=== PATIENT | female | born 1985 | race Two or more races ===

== ENCOUNTER 2024-03-11 23:53 | Emergency (ER) | payer BC, SELFPAY ==
[2024-03-11 23:53] VITALS: BMI 36.6
--- NOTE | 2024-03-12 00:09 | EDNOTE_ITS ---
ED Dental RME/HPI General Chief complaint: Dental/Oral/Throat Stated complaint: RIGHT UPPER TOOTH PAIN Time Seen by Provider: 03/11/24 23:56 Arrival date/time: 03/11/24 23:53 39 female present to emergency room with c/o of dental pain for 2 day. born full term, immunizations up to date and normal growth and development to date . pt has an appointment with dentist on 03/14/24 SEVERITY: Symptoms are described as being severe with limitations on activities of daily living CONTEXT: The patient is unable to identify any inciting events. DURATION/TIMING: The symptoms started approximately 2 days ASSOCIATED SYMPTOMS: The patient is unable to identify any other associated symptoms. MODIFYING FACTORS: The patient is unable to identify any alleviating or aggravating symptoms. PERTINENT ROS: no fevers, no cough, no chest pain/shortness of breath no nausea,vomiting, diarrhea, no dizziness/headache no rash no loc/syncope REVIEW OF SYSTEMS: See History of Present Illness - with the exception of those mentioned in the history of present illness, all other systems reviewed and reported as negative GENERAL: In general the patient is awake, interactive, in an emergency department gurney. HEAD/EYES/EARS/NOSE/THROAT: Teeth/gingiva in poor condition. + right upper partial fracture tooth noted. no airway obstruction no ludwigs normo-cephalic, atraumatic, mucus membranes are moist, anicteric, palpebral conjunctiva is pink, trachea is midline. EXTREMITY: no tenderness to palpation over the long bones or large joints of the bilateral upper and lower extremities, no joint swelling, no joint erythema, no signs of trauma, no unilateral leg swelling and no peripheral edema. SKIN: warm, dry, well-perfused, no jaundice, no rash, no telangiectasias or petechia. PSYCH: calm, cooperative, no evidence of psychosis or agitation Related Data Allergies Allergy/AdvReac Type Severity Reaction Status Date / Time codeine Allergy Intermediate Nausea/Vomi Verified 07/23/22 11:22 tiing Course Course Course Narrative: Presentation consistent with dental pain of tooth # upper right tooth No evidence of Tobi's Angina, large abscess pocket, requirement for emergent extraction, or other complications. Provided prescription for augmentin. Patient informed to follow up with local dentist. Return to ER if pain uncontrolled, abscess that drains purulent fluid, high fevers, trouble swallowing, or other concerns.? Plan:? Discharge from ED? F/U with local dentist Informed to return to ED if has new or worsening symptoms. Expressed understandi ng of and agreement with plan and all questions answered. Quality Measures none Orders Category Date Time Status Amoxicillin/Pot Clav 875 [Augmentin 875] Med 03/12/24 00:08 Discontinued 1 tab PO X1 ONE Dental / Oral Patient data External records reviewed:: None Clinical information provided by:: patient Social determinants that could affect healthcare access:: none Patient has the following chronic illnesses:: dental caries How is presenting disease/condition affected by chronic disease/condition?: exacerbated by Evaluation data The following diagnostics were reviewed and interpreted by me:: other (specify) Lab and/or radiology exams considered but not ordered:: none Interpretation Summary: none Medications / Prescriptions Medications or Prescriptions considered but not ordered:: none Medication administrations:: Medication Administration History Discontinued Medications Amoxicillin/Clavulanate Potassium (Amoxicillin/Pot Clav 875 Tablet) 1 tab PO X1 ONE Stop: 03/12/24 00:09 as stated above Consultations Consultation(s) initiated? (list below): No Diagnosis Most likely diagnosis given after review of the tests above:: dental caries Admission Indicated Admission indicated?: not indicated Admission Request Was there a request for admission?: No Disposition Plan Disposition Plan: Discharge Discharge Attestation Discharge Attestation: The patient and all family members were given an opportunity to ask questions and understood the discharge instructions. Discharge instructions specifically effects, indications for sooner follow up or return to the emergency department, and the expected course of current diagnosis. Patient condition: Stable Discharge Plan Plan Patient Disposition: HOME (Self Care) Health Concerns: Follow up with your dental appointment as schedule Return to Ed if symptoms worsen Problem List Clinical Impression: Dental caries Patient/Caregiver Discharge Instructions Education Materials: Understanding Tooth Decay Print Language: Indonesian Stand Alone Forms: Roseline Award Info., Patient Portal Info Letter
[2024-03-12 00:12] VITALS: BP 131/86; PULSE 68; RESP 18; TEMP 36.9; O2SAT 98
[2024-03-12] MEDS: AMOXICILLIN/POT CLAV 875 TABLET 1 TAB PO (00:26)
== END 2024-03-12 02:15 | disposition home or self-care (01) ==
LOC: SERX 03-12 00:36
PROVIDERS: Emergency Provider Emergency Medicine; PCP Family Medicine
DX: K02.9 Dental caries, unspecified (principal)
CPT/HCPCS: 99282; A9270